=== PATIENT | male | born 1970 | race Caucasian/White ===

== ENCOUNTER 2018-01-01 17:56 | Inpatient (IN) | payer OTHER ==
[2018-01-01] MEDS ORDERED: ASPIRIN 325 MG TAB PO ONE (18:13)
--- NOTE | 2018-01-01 18:15 | CPEKG ---
Test Reason : OPEN Blood Pressure : / mmHG Vent. Rate : 090 BPM Atrial Rate : 091 BPM P-R Int : 155 ms QRS Dur : 095 ms QT Int : 352 ms P-R-T Axes : 065 092 040 degrees QTc Int : 431 ms Sinus rhythm Lateral infarct, acute (LAD) Confirmed by Manoj Toledo ([id number]) on 01/01/2018 6:15:24 PM Referred By: Confirmed By:Manoj Toledo
--- NOTE | 2018-01-01 18:16 | EDPHY ---
H & P Smoking Status: Never smoked Time Seen by Provider: 01/01/18 18:03 HPI/ROS: CHIEF COMPLAINT: Chest pressure HISTORY OF PRESENT ILLNESS: The patient is a 47-year-old male here with chief complaint of chest pressure since 2 o'clock this morning. He reports chest pressure that woke him from his sleep around 2:00 a.m and lasted until around 10 :00 a.m. States the pain self-resolved and then reoccurred around 4 o'clock this afternoon. The chest pain does not radiate. He has had no diaphoresis. He was picking up his daughter from school and driving when the pain reoccurred. He has had no exertional chest pain recently. He has no cardiac history. He has no history of diabetes, hypertension, dyslipidemia, smoking. He has not taken any aspirin today. Denies any drug allergies. He has never had a stress test. States he has felt slightly fatigued for the last 5 days has had a"bad workouts"and has noticed that his heart rate has been elevated is typically slow. Has no history of DVT chest pain. He has had no cough. States he woke this morning and had a temperature of 101 degrees. He's had no runny nose or sore throat. REVIEW OF SYSTEMS: Constitutional: + fever, no chills. Eyes: No discharge. ENT: No sore throat. Cardiovascular: + chest pain, no palpitations. Respiratory: No cough, no shortness of breath. Gastrointestinal: No abdominal pain, no vomiting. Genitourinary: No hematuria. Musculoskeletal: No back pain. Skin: No rashes. Neurological: No headache. (Jean Carlos Layne) Physical Exam: General Appearance: Alert and no distress. No respiratory distress. Non diaphoretic. Eyes: Pupils equal and round no injection. Respiratory: Chest is nontender, lungs are clear to auscultation. No respiratory distress Cardiac: regular rate and rhythm. No murmur or rub. Gastrointestinal: Abdomen is soft and nontender, no masses, bowel sounds normal. Musculoskeletal: Neck is supple and nontender. No JVD Extremities have full range of motion and are nontender. Skin: No rashes or lesions. Neuro: Alert and oriented (Jean Carlos Layne) Constitutional: Initial Vital Signs Temperature (C) 36.7 C 01/01/18 17:57 Heart Rate 104 H 01/01/18 17:57 Respiratory Rate 18 01/01/18 17:57 Blood Pressure 124/89 H 01/01/18 17:57 O2 Sat (%) 98 01/01/18 17:57 O2 Delivery Mode Room Air Allergies/Adverse Reactions: No Known Allergies Allergy (Verified 06/09/15 22:50) Home Medications: Medication Instructions Recorded Herbals/Supplements -Info Only 1 ea PO DAILY 01/01/18 Medical Decision Making - Diagnostics EKG Interpretation: Sinus rhythm with rate of 90. ST depression in V1 and V3. No ST elevation. QTC 431. (Jean Carlos Layne) ED Course/Re-evaluation: Please see Dr. Toledo's the documentation. The 47-year-old male here with the chest pain that will confirm sleep at 2:00 a.m. This morning. Presents to the ER with recurrence of pressure and EKG shows ST depression here full concerning for acute M I. . Initial troponin is elevated at 13.. I discussed case with my supervising physician who called interventional cardiology. He was given 325 aspirin. He remained hemodynamically stable during his stay in the emergency room. (Jean Carlos Layne) Differential Diagnosis: Differential diagnosis considered for chest pain including but not limited to myocardial ischemia, aortic dissection, pericarditis, pulmonary embolus, chest wall pain, pleural inflammation and pulmonary infectious causes. (Manoj Toledo) Other Provider: PHYSICIAN DOCUMENTATION: The patient was evaluated and managed by the Physician Machine Deburrer and myself. I have reviewed the chart and agree with the findings and plan of care as documented. In addition, I examined the patient myself at 1810. History confirmed as nontraumatic chest pressure, but also recent subjective fever. Physical findings as follows: Regular rate rhythm without murmur, not diaphoretic. Discussed with Dr. Guevara interventionalist at 6:15 p.m.; he reviewed EKG, requested at 18:23 call laborer landscape in which was done by [employer]. Discussed with his friend Dr. Rosenbaum electric power superintendent at the patient's request, by phone. 1900: hr 97, 99% sat, 130/78. CP down to 0.5/10. Paola with patient. Critical care time spent by me, Dr. Toledo, exclusively with the care of this patient was 20 minutes, exclusive of PA or SENIOR BUSINESS OBJECTS DEVELOPER time and exclusive of separate procedures. The organ system at risk was is cardiovascular and I ordered aspirin, nitroglycerin, cardiology consultation to stabilize the patient and prevent worsening of the patient's condition. I am the secondary supervising physician. (Manoj Toledo) - Data Points Laboratory Results: Laboratory Results 01/01/18 18:10 01/01/18 18:10 01/01/18 01/01/18 01/01/18 18:16 18:10 18:10 WBC RBC Hgb Hct MCV MCH MCHC RDW Plt Count MPV Neut % (Auto) Lymph % (Auto) [place] % (Auto) Eos % (Auto) Baso % (Auto) Nucleat RBC Rel Count Absolute Neuts (auto) Absolute Lymphs (auto) Absolute Monos (auto) Absolute Eos (auto) Absolute Basos (auto) Absolute Nucleated RBC Immature Gran % Immature Gran # PT 14.2 SEC SEC (12.0-15.0) INR 1.08 (0.83-1.16) APTT 26.3 SEC SEC (23.0-38.0) Sodium Potassium Chloride Carbon Dioxide Anion Gap BUN Creatinine Estimated GFR Glucose Calcium POC Troponin I 13.09 ng/mL H ng/mL (0.00-0.08) Troponin I 12.400 ng/mL H ng/mL (0.000-0.034) 01/01/18 01/01/18 18:10 18:10 WBC 8.59 10^3/uL 10^3/uL (3.80-9.50) RBC 5.10 10^6/uL 10^6/uL (4.40-6.38) Hgb 15.3 g/dL g/dL (13.7-17.5) Hct 44.0 % % (40.0-51.0) MCV 86.3 fL fL (81.5-99.8) MCH 30.0 pg pg (27.9-34.1) MCHC 34.8 g/dL g/dL (32.4-36.7) RDW 12.1 % % (11.5-15.2) Plt Count 270 10^3/uL 10^3/uL (150-400) MPV 10.1 fL fL (8.7-11.7) Neut % (Auto) 77.3 % H % (39.3-74.2) Lymph % (Auto) 11.8 % L % (15.0-45.0) [place] % (Auto) 10.0 % % (4.5-13.0) Eos % (Auto) 0.5 % L % (0.6-7.6) Baso % (Auto) 0.2 % L % (0.3-1.7) Nucleat RBC Rel Count 0.0 % % (0.0-0.2) Absolute Neuts (auto) 6.64 10^3/uL H 10^3/uL (1.70-6.50) Absolute Lymphs (auto) 1.01 10^3/uL 10^3/uL (1.00-3.00) Absolute Monos (auto) 0.86 10^3/uL H 10^3/uL (0.30-0.80) Absolute Eos (auto) 0.04 10^3/uL 10^3/uL (0.03-0.40) Absolute Basos (auto) 0.02 10^3/uL 10^3/uL (0.02-0.10) Absolute Nucleated RBC 0.00 10^3/uL 10^3/uL (0-0.01) Immature Gran % 0.2 % % (0.0-1.1) Immature Gran # 0.02 10^3/uL 10^3/uL (0.00-0.10) PT INR APTT Sodium 141 mEq/L mEq/L (135-145) Potassium 3.5 mEq/L mEq/L (3.3-5.0) Chloride 102 mEq/L mEq/L (97-110) Carbon Dioxide 25 mEq/l mEq/l (22-31) Anion Gap 14 mEq/L mEq/L (8-16) BUN 22 mg/dL mg/dL (7-23) Creatinine 0.8 mg/dL mg/dL (0.7-1.3) Estimated GFR > 60 Glucose 157 mg/dL H mg/dL (70-100) Calcium 10.2 mg/dL mg/dL (8.5-10.4) POC Troponin I Troponin I Medications Given: Ibuprofen (Motrin) 600 mg PO TID [place] Stop: 06/30/18 21:59 Last Admin: 01/01/18 20:51 Dose: 600 mg Nitroglycerin (Nitrostat) 0.4 mg SL Q5M PRN PRN Reason: Chest Pain Last Admin: 01/01/18 18:34 Dose: 0.4 mg Discontinued Medications Aspirin (Aspirin) 325 mg PO EDNOW ONE Stop: 01/01/18 18:14 Last Admin: 01/01/18 18:26 Dose: 325 mg Nitroglycerin/Dextrose (Nitroglycerin 200 Mcg/Ml (Premix)) 250 mls @ 0 mls/hr IV EDNOW ONE; Titrate PRN Reason: Protocol Stop: 01/01/18 18:25 Last Admin: 01/01/18 18:53 Dose: 250 mls Sodium Chloride (Ns) 1,000 mls @ 0 mls/hr IV EDNOW ONE; Wide Open PRN Reason: Protocol Stop: 01/01/18 18:25 Last Admin: 01/01/18 18:31 Dose: 1,000 mls Point of Care Test Results: Chemistry 01/01/18 18:16 POC Troponin I 13.09 ng/mL H ng/mL (0.00-0.08) Departure - Departure Disposition: To OP Cath/Surgery Clinical Impression: Acute coronary syndrome Condition: Serious
[2018-01-01 18:21] LABS: PLATELET COUNT 270 10^3/uL (150-400)
[2018-01-01] MEDS ORDERED: NITROGLYCERIN/DEXTROSE 250 ML IV ONE (18:24)
[2018-01-01] MEDS ORDERED: NS 1,000 ML IV ONE (18:24)
[2018-01-01] MEDS: NITROGLYCERIN 0.4 MG BTL SL PRN ×2 (18:28→18:34)
[2018-01-01 18:32] LABS: INR 1.08 (0.83-1.16); PROTIME(PATIENT) 14.2 SEC (12.0-15.0)
[2018-01-01] MEDS ORDERED: IOPAMIDOL (ISOVUE-370) 150 ML BTL IV ONE (18:51)
[2018-01-01] MEDS ORDERED: MIDAZOLAM 2 MG/2 ML VIAL ONE ×2 (18:51→19:27)
[2018-01-01] MEDS ORDERED: LIDOCAINE 1% 300 MG/30 ML SDV ONE (18:51)
[2018-01-01] MEDS ORDERED: fentaNYL 100 MCG/2 ML INJ ONE ×2 (18:51→19:27)
[2018-01-01] MEDS ORDERED: ONDANSETRON 4 MG/2 ML VIAL IVP PRN (20:07)
[2018-01-01] MEDS ORDERED: ATROPINE SULFATE 1 MG/10 ML SYR IVP PRN (20:07)
[2018-01-01] MEDS ORDERED: HYDROCODONE/APAP 5/325 TAB PO PRN (20:07)
--- NOTE | 2018-01-01 20:49 | ECHO ---
[email or web address] [address] [address] Main: [phone] Fax: Transthoracic Echocardiogram Name: HIGINIO MCCLENDON MR#: [id number] Study Date: 01/01/2018 Study Time: 08:04 PM Date of : 1970 Age: 47 year(s) Height: 172.7 cm (68 in.) Weight: 79.38 kg (175 lb.) BSA: 1.93 m2 Gender: Male Examination: Limited Echo Indication: Eval for LV function and pericardial effusion Image Quality: Adequate Contrast: Requested by: Esau Pacheco BP: / Heart Rate: Rhythm: Indication: Eval for LV function and pericardial effusion Procedure Staff Sharepoint Specialist: Melva Erazo [facility] Reading Physician: Esau Pacheco MD Requesting Provider: Conclusions: Normal size left ventricle. Normal global systolic LV function. The ejection fraction is visually estimated to be 60 %. No pericardial effusion. Measurements: Chambers Valvular Assessment AV/MV Valvular Assessment TV/PV Normal Normal Normal Name Value Range Name Value Range Name Value Range Visual EF: 60 % AV Vmax: 1.31 m/s (1 m/s-1.7 m/s) AV maxP mmHg ( - ) AV meanP mmHg ( - ) Continued Measurements: Findings: Left Ventricle: Normal size left ventricle. Normal global systolic LV function. The ejection fraction is visually estimated to be 60 %. No regional wall motion abnormality. Right Ventricle: Normal size right ventricle. Normal RV function. Left Atrium: The left atrium is normal in size. Right Atrium: The right atrium is normal in size. Mitral Valve: The mitral valve is normal in appearance and function. Mild mitral valve regurgitation is present. No mitral stenosis is present. Patient: HIGINIO MCCLENDON Study Date: 01/01/2018 Page 1 of 2 08:04 PM Aortic Valve: The aortic valve is tri-leaflet. There is no significant aortic valve regurgitation. No aortic valve stenosis is present. Tricuspid Valve: The tricuspid valve is normal in appearance and function. Trivial tricuspid valve regurgitation. Pulmonic Valve: The pulmonic valve is normal in appearance and function. Pericardium: No pericardial effusion. (No Signature Object) Patient: HIGINIO MCCLENDON Study Date: 01/01/2018 Page 2 of 2 08:04 PM [id number]
[2018-01-01] MEDS: IBUPROFEN 600 MG TAB PO SCH (20:51)
[2018-01-02] MEDS ORDERED: PROTOCOL MAGNESIUM 1 DOSE IV PRN (01:58)
[2018-01-02] MEDS ORDERED: PROTOCOL POTASSIUM 1 DOSE MISC PRN (01:58)
[2018-01-02] MEDS ORDERED: POTASSIUM CL 20 MEQ TAB PO ONE (02:15)
[2018-01-02] MEDS ORDERED: MAGNESIUM SULF 1 GM/DEXTROSE 100 ML IV ONE (02:30)
--- NOTE | 2018-01-02 03:37 | GCON ---
DATE OF CONSULTATION: 01/01/2018 We have been asked by Dr. Toledo to evaluate the patient with symptoms of chest pain. HISTORY OF PRESENT ILLNESS: The patient is a 47-year-old gentleman with limited cardiac risk factors , who presents with a chief complaint of chest pain. The patient was in his usual state of health un til approximately 2 o'clock this morning when he woke up experiencing chest pain. The chest pain was described as an intense pressure in the center of his chest without radiation. The chest pain was a ssociated with symptoms of nausea and vomiting, but not diaphoresis. The chest pain lasted until juwan roximately 10 or 11 o'clock this morning when it gradually subsided. The patient did well until appr oximately 4 o'clock this afternoon when he had a recurrence of his chest pain. He took some Gas-X wi thout resolution of his symptoms. Therefore, he decided to go to the emergency department for furthe r evaluation. In the emergency department, he had an EKG performed demonstrating sinus rhythm. The patient was noted to have subtle ST-segment elevation in leads [address]-segment depression i n lead V1. His troponin was elevated at 13. We were consulted to help in the further management of this patient. The patient was treated with aspirin and nitroglycerin. His symptoms had improved sig nificantly by my arrival at bedside however, patient was continuing to have low level chest pain. Th e patient denies a previous history of coronary artery disease. There is no history of hypertension, hyperlipidemia, diabetes mellitus, or smoking. The patient does report a family history of coronary artery disease at an early age onset in his grandfather. Other symptoms of note: Approximately 1 d ay prior to admission, patient noted an increase in his resting heart rate by approximately 20 beats per minute. In addition, patient has been feeling symptoms of generalized fatigue and the evening pr ior to admission, patient did note a fever of 101 degrees. PAST MEDICAL HISTORY: None. MEDICATIONS: None. ALLERGIES: No known drug allergies. SOCIAL HISTORY: Patient is . He lives with his . 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 He does not smoke. He denies problems with alcohol. FAMILY HISTORY: Notable for coronary artery disease. REVIEW OF SYSTEMS: 10-point review of systems is negative, except as noted in HPI. PHYSICAL EXAMINATION: GENERAL: The patient is resting in bed. He appears to be in mild distress. VITAL SIGNS: Temperature is afebrile. Pulse is 85, blood pressure is 128/75, respiratory rate is 18 , SaO2 is 100% on 2 L nasal cannula. HEENT: Normocephalic atraumatic. Extraocular muscles intact. NECK: No JVD. No bruits. LUNGS: Clear to auscultation bilaterally. CARDIOVASCULAR: Regular rat e and rhythm. S1, S2. No murmurs, rubs, or gallops appreciated. Abdomen. ABDOMEN: Soft, nontende r. Normoactive bowel sounds. No hepatosplenomegaly noted. EXTREMITIES: No clubbing, cyanosis, or edema. SKIN: No evidence of rash. NEURO: Patient is awake, alert, and oriented x3. LABORATORY: White blood cell count is 8.59, hemoglobin 15.3, hematocrit is 44.0, platelet count is 2 70. Sodium 141, potassium 3.5, chloride 102, CO2 25, BUN 22, creatinine 0.8. Troponin is 13.09. Gl ucose is elevated at 157. INR is 1.08. EKG demonstrates sinus rhythm. Vertical axis normal interva ls. Subtle ST-segment elevation in leads 1 and aVL with small R-waves, ST-segment depression in lead V1. ASSESSMENT AND PLAN: The patient is a 47-year-old gentleman with limited cardiac risk factors, who p resents with a chest pain syndrome concerning for an anginal equivalent. His troponin is elevated at 13. His EKG is suggestive of possible inferolateral myocardial infarction. Reviewed risks and bene fits of cardiac catheterization to further evaluate his symptoms. Will arrange to have this performe d emergently. Other potential etiologies would be pericarditis given his fever and recent flu-like i llness. However, his EKG is more suggestive of ischemia than it would be pericarditis. /[id number]/MODL
[2018-01-02] MEDS: IBUPROFEN 600 MG TAB PO SCH ×3 (06:05→21:40)
[2018-01-02] MEDS: OXYCODONE/APAP 5/325 TAB PO PRN ×2 (06:29→08:14)
--- NOTE | 2018-01-02 07:08 | CPIP ---
DATE OF PROCEDURE: 01/01/2018 PROCEDURE: 1. Coronary angiography. 2. Left ventriculography. INDICATION: Acute coronary syndrome with elevated troponin. ACCESS: Patient was prepped and draped in sterile fashion. 1% lidocaine was used to anesthetize the right inguinal region. A 6-Bolivian introducer sheath was placed selectively into the right common fe moral artery via modified Seldinger technique. CORONARY ANGIOGRAPHY: A 6-Bolivian JL4 was advanced to the left main coronary artery and images obtain ed. The left main coronary artery bifurcated into an LAD and circumflex coronary arteries. The left main coronary artery appeared normal. The left anterior descending coronary artery gave rise to 4 d iagonal branches. The left anterior descending coronary artery and its complement of diagonal branch es appeared normal. The circumflex coronary artery is a large vessel, but was nondominant. Circumfl ex coronary artery gave rise to 1 prominent OM branch. The circumflex coronary artery appeared ramirez l. Its OM branch also appeared normal. A 6-Bolivian JR4 was advanced to the right coronary artery. I t did not engage the right coronary artery well. The 6-Bolivian JR4 was exchanged for a 6-Bolivian no-to rque right catheter. The 6-Bolivian no-torque right catheter engaged the right coronary artery well an d images were obtained. The right coronary artery is dominant. The right coronary artery appeared n ormal. LEFT VENTRICULOGRAPHY: A 6-Bolivian pigtail catheter was advanced in the left ventricle and images obt ained. Left ventricle is normal size, had normal systolic function. The estimated ejection fraction is 55%. There appeared to be subtle anterolateral hypokinesis. COMPLICATIONS: None. CONCLUSIONS: 1. Normal coronary arteries. 2. Normal left ventricular size and systolic function. /[id number]/MODL
--- NOTE | 2018-01-02 08:16 | PDMN ---
Medical Necessity Medical necessity: MCG M230 HI- [address] elevation in leads 1 and a VL with sm R waves, ST segment depression in lead V1 - trop elevated 13, emergent cardiac cath,
[2018-01-02] MEDS: NITROGLYCERIN 0.4 MG BTL SL PRN (09:59)
[2018-01-02] MEDS ORDERED: IOPAMIDOL (ISOVUE 370) 100 ML BTL IV ONE (10:13)
[2018-01-02] MEDS: PANTOPRAZOLE SODIUM 40 MG TAB PO SCH (11:02)
[2018-01-02] MEDS: CARVEDILOL 3.125 MG TAB PO SCH ×2 (11:14→19:32)
--- NOTE | 2018-01-02 11:58 | GCON ---
PULMONARY CRITICAL CARE CONSULTATION DATE OF CONSULTATION: 01/02/2018 REASON FOR CONSULTATION: Chest pain, myocarditis. HISTORY: Patient is a healthy 47-year-old gentleman who has noticed some shortness of breath and fat igue over the last week or so. Heart rate was high in a recent workout. He has had 2 days of off an d on atypical chest pain. He presented to the emergency department where there was ST-segment abnorm alities and an elevated troponin at 13. He was given aspirin and nitroglycerin. Cardiology consulte d and took him to the photofinishing laboratory worker. There were was no evidence of coronary artery disease. Left ventric ular ejection fraction was 55%. Cardiac echo was normal. Repeat troponin showed continued elevation at 16. After the procedure, the patient was admitted to the intensive care unit for observation and monitori ng. He has done well. Vital signs have been stable. He has had some intermittent chest pain, which has waxed and waned. No pericardial rub has been heard and no pericardial effusion is present. The patient has no other significant problems. He last traveled to [place] by plane about 3 weeks ago . He has had no significant lower extremity symptoms. CT angiogram of the chest done this morning i s negative for thromboembolic disease. PAST MEDICAL HISTORY: Negative. He has no medical problems. MEDICATIONS: Takes no medications. DRUG ALLERGIES: None known. 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 He and his have 2 b oys. There is no history of tobacco use. Significant alcohol is negative. FAMILY HISTORY: Positive for coronary artery disease. REVIEW OF SYSTEMS: 10-point review of systems is negative, except as mentioned above. He did have a low-grade fever 101 the night prior to admission. PHYSICAL EXAMINATION: GENERAL: Reveals a pleasant gentleman who is lying comfortably in bed. He is in no distress. VITAL SIGNS: Blood pressure is 138/72, heart rate 85 with sinus rhythm on the es tor, respiratory rate is 14. He is afebrile. NECK: Unremarkable for lymphadenopathy or thyromegaly . There is no jugular venous distention. CHEST: Clear bilaterally. Excursions are excellent. The re are no abnormal sounds. HEART: Regular in rate and rhythm. There are no murmurs, no obvious gal lops. P2 is normal. ABDOMEN: Soft, nontender. Bowel sounds are present. EXTREMITIES: Unremarkab le for edema, cords, or tenderness. NEUROLOGIC: Examination is within normal limits. DATABASE: Catheterization, echo, and CT angiogram are as noted above. White blood cell count is 8600, hematocrit 44, platelets 270,000. PT and PTT were normal on admissio n. Basic metabolic panel was normal with the exception of a mildly elevated glucose of 157. Initial troponin was 12.4. Current troponin this morning is 16.3. Cholesterol is 94. BNP is mildly elevat ed at 973. ASSESSMENT: 1. Chest pain. This is atypical, likely was related to myocarditis. The patient is being followed by Dr. Guevara. Anti-inflammatory treatment and pain control has been initiated. He has been placed on carvedilol. There is no evidence of pulmonary embolic disease, pleurisy, or other explanations fo r his pain. The etiology for his myocarditis would most likely be viral. 2. Prophylaxis: He will be placed on pantoprazole. He is going to be ambulatory and is at low risk for deep venous thrombosis. Sequential compression devices will be used during bedrest. PLAN/RECOMMENDATIONS: Patient will be kept in the intensive care unit. Telemetry monitoring will be maintained. Appropriate pain control will be given. Ibuprofen will be continued. Further plans and recommendations will be made based on his progress over the next 12-24 hours. /[id number]/MODL
--- NOTE | 2018-01-02 12:48 | SOAPPROG ---
ESTEFANÍA Progress Note Assessment/Plan: 1. Myocarditis - Pt presented with symptoms of chest pain and an elevated troponin. Cardiac catheterization on 01/01/18 demonstrated no significant obstructive disease, preserved LV function, and an elevated LVEDP of [address] mmHg. [address] with subtle [address] elevation and MI depression. Pt has continued to have intermittent episodes of chest pain. Troponin has increased from 12 to 16. ESR and CRP are wnl. Telemetry with short runs of VT from 2 different locations. No CHF. --> Repeat troponin in am --> Repeat echocardiogram in am --> Follow on telemetry --> motrin 600 mg bid for myoparicarditis --> coreg 3.125 mg bid 2. Elevated glucose - + family history of DM. --> Await Hgb A1c Subjective: + chest pain overnight and again this am No orthopnea or PND No access site complications Objective: Vital Signs Temp Pulse Resp BP Pulse Ox 36.8 C 72 14 122/76 H 96 01/02/18 12:00 01/02/18 12:00 01/02/18 12:00 01/02/18 12:00 01/02/18 12:00 Laboratory Results 01/02/18 11:28 01/02/18 05:30 01/01/18 01/02/18 01/03/18 05:59 05:59 05:59 Intake Total 1600 Output Total 1050 Balance 550 PT 14.2 SEC (12.0-15.0) 01/01/18 18:10 INR 1.08 (0.83-1.16) 01/01/18 18:10 Physical Exam - Physical Exam General Appearance: alert, no apparent distress Respiratory: lungs clear Cardiac/Chest: regular rate, rhythm, No friction rub Abdomen: non-tender, soft Extremities: No pedal edema Neuro/Psych: alert, oriented x 3 ICD10 Worksheet Patient Problems: Problems Problem Status Onset Acute coronary syndrome Acute TIA (transient ischemic attack) Acute
--- NOTE | 2018-01-02 12:53 | ASMTCMCOM ---
CM Note CM Note Notes: Reviewed chart. Pt presented to the Emergency Department with atypical chest pressure. No significant history noted. Pt is , lives with his spouse independently. 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 Pt admitted for further evaluation and treatment of possible ACS; he is s/p a clean heart cath. Discharge needs remain unclear. Pt is being treated for myocarditis of unknown etiology. Anticipate pt will likely return home independently when medically stable. CM will continue to follow for any potential needs. Discharge Plan: To be determined, likely independent Date Signed: 01/02/2018 12:52 PM Electronically Signed By:Jacquelyn Mcguire RN
--- NOTE | 2018-01-02 18:57 | CPEKG ---
Test Reason : OPEN Blood Pressure : / mmHG Vent. Rate : 078 BPM Atrial Rate : 078 BPM P-R Int : 152 ms QRS Dur : 095 ms QT Int : 360 ms P-R-T Axes : 061 089 046 degrees QTc Int : 411 ms Sinus rhythm Lateral infarct, acute STEMI Minimal ST elevation, inferior leads Compared with 01/01/2018 similar findings Confirmed by Renae Fleming ([id number]) on 01/02/2018 6:57:27 PM Referred By: Confirmed By:Renae Fleming
[2018-01-02] MEDS ORDERED: POTASSIUM CL 10 MEQ TAB PO ONE (19:17)
[2018-01-03 06:01] LABS: INR 1.11 (0.83-1.16); PROTIME(PATIENT) 14.5 SEC (12.0-15.0)
[2018-01-03] MEDS ORDERED: MAGNESIUM SULF 1 GM/DEXTROSE 100 ML IV ONE (07:35)
[2018-01-03] MEDS: CARVEDILOL 3.125 MG TAB PO SCH ×2 (09:34→16:42)
[2018-01-03] MEDS: IBUPROFEN 600 MG TAB PO SCH ×3 (09:34→21:05)
[2018-01-03] MEDS: PANTOPRAZOLE SODIUM 40 MG TAB PO SCH (09:35)
--- NOTE | 2018-01-03 10:08 | PDCARPN ---
Cardiology Progress Note Chief Complaint: Chest pains Assessment/Plan: Assessment: Patient is a 47 y/o male with unremarkable past medical history (no HTN, HLP, CAD, or DM), who presented last week (Wednesday) with complaints of chest pains. ECG with ST elevation and elevation to the troponin was noted. The patient was taken to the cardiac field laboratory operator without appreciable CAD noted. LVEF by ventriculography as well as echocardiography was normal (55% by angiography and 60% by echo). Troponin continues to elevate (mild elevation was noted with this morning's assessment). Patient without cardiovascular complaints - this is the longest the patient has gone without symptoms. Telemetry with very infrequent PVCs (there was one noted this morning while on rounds). 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 Discussion this morning about both CMR and EMB as diagnostic testing options. Plan: (1) Would continue therapy on Coreg as at present (2) Add colchicine (0.6 mg twice per day) (3) Repeat troponin at noon (first testing was 5 am) (4) Will order CMR this morning (5) Yesterday's note made mention of repeat echocardiography as well which is reasonable, non nuclear, and non invasive (6) Many signs and symptoms would continue the patient on the path to a EMB, and the patient has been told this - EMB is more sensitive and specific for the diagnosis (specifically) Subjective: No cardiovascular complaints Objective: Vital Signs (8 Hrs) Temp Pulse Resp BP Pulse Ox 01/03/18 09:34 84 117/74 01/03/18 08:00 37 C 70 21 H 117/74 96 01/03/18 06:00 36.6 C 65 14 98/59 L 96 01/03/18 04:00 68 16 100/55 L Intake/Output (24 Hrs) 01/02/18 01/03/18 01/04/18 05:59 05:59 05:59 Intake Total 1600 650 Output Total 1050 0 Balance 550 650 Intake: Oral (ml) 500 650 IV Intake (ml) 900 IV Infused (ml) 200 Output: Urine (ml) 1050 Toilet 800 Urinal 250 Emesis (ml) 0 Other: Weight 83.2 kg Intake Quantity Yes Sufficient Number of Voids 0 Toilet 2 3 Urinal 1 Number of Stools Toilet 0 Result Diagrams: 01/03/18 05:42 01/03/18 05:42 Cardiac Labs: Cardiac Lab Results (72 Hrs) 01/03/18 01/02/18 05:42 05:30 Troponin I 18.200 H 16.300 H EKG: Sinus rhythm with ST elevation (diffusely) Telemetry: Normal sinus rhythm Echocardiogram: Normal LVEF without blanca wall motion abnormalities noted - Physical Exam Constitutional: WDWN, healthy appearing, no apparent distress Eyes: PERRL, EOMI Ears, Nose, Mouth, Throat: moist mucous membranes Cardiovascular: regular rate and rhythm, no murmurs, no rubs, no gallops, pulses symmetric bilat, No jugular vein distention Peripheral Pulses: 2+: dorsalis-pedis (R), dorsalis-pedis (L) Respiratory: clear to auscultate bilat, no crackles, no wheezes Gastrointestinal: normoactive bowel sounds Skin: no rashes, no edema Musculoskeletal: no muscular tenderness Neurologic: AAOx3, CN II-XII grossly intact Psychiatric: cooperative, interactive, following commands ICD10 Worksheet Patient Problems: Problems Problem Status Onset Acute coronary syndrome Acute TIA (transient ischemic attack) Acute
[2018-01-03] MEDS: COLCHICINE 0.6 MG CAP/TAB PO SCH ×2 (11:32→21:05)
--- NOTE | 2018-01-03 12:47 | ECHO ---
[email or web address] [place] [id number] Main: [phone] Fax: Transthoracic Echocardiogram Name: HIGINIO MCCLENDON MR#: [id number] Study Date: 01/03/2018 Study Time: 10:40 AM Date of : 1970 Age: 47 year(s) Height: 175.3 cm (69 in.) Weight: 83.01 kg (183 lb.) BSA: 1.99 m2 Gender: Male Examination: Limited Echo Indication: reassessment of wall motion and systolic function Image Quality: Adequate Contrast: Requested by: Esau Torres BP: 115 mmHg/65 mmHg Heart Rate: Rhythm: Indication: reassessment of wall motion and systolic function Procedure Staff Datastage Architect: Elda Owen [facility] Reading Physician: Parveen Paredes MD Requesting Provider: Conclusions: Normal size left ventricle. No LV hypertrophy. Low normal left ventricular systolic function. EF is 52 %. No regional wall motion abnormality. Normal RV function. Echo free space noted around RV free wall most likely fat pad. Measurements: Chambers Valvular Assessment AV/MV Valvular Assessment TV/PV Normal Normal Normal Name Value Range Name Value Range Name Value Range IVSd (2D): 0.7 cm (0.6 cm-1.1 cm) LVDd (2D): 4.8 cm (4.2 cm-5.9 cm) LVDs (2D): 3.5 cm (2.1 cm-4 cm) LVPWd (2D): 0.9 cm (0.6 cm-1 cm) LVEF (BP): 52 % (>=55 %) Continued Measurements: Findings: Left Ventricle: Normal size left ventricle. No LV hypertrophy. Low normal left ventricular systolic function. EF is 52 %. No regional wall motion abnormality. Right Ventricle: Patient: HIGINIO MCCLENDON Study Date: 01/03/2018 Page 1 of 2 10:40 AM Normal RV function. Pericardium: Echo free space noted around RV free wall most likely fat pad. (No Signature Object) Patient: HIGINIO MCCLENDON Study Date: 01/03/2018 Page 2 of 2 10:40 AM [id number]
--- NOTE | 2018-01-03 16:58 | PDINTPN ---
Bud[facility] Progress Note Assessment/Plan: Assessment: Probable Myocarditis: Symptoms resolved, resting HR down last troponin down, and EF mildly reduced but stable on Echo this AM. Plan: Cardiac MRI. Follow troponins. Depending on MRI and troponins, will either continue to follow or consider endomyocardial biopsy. 01/03/18 16:56 Subjective: Feels well, no CP, palpitations, dyspnea. Objective: Vital Signs Temp Pulse Resp BP Pulse Ox 37 C 81 12 120/73 97 01/03/18 16:00 01/03/18 16:42 01/03/18 16:00 01/03/18 16:42 01/03/18 16:00 Laboratory Results 01/03/18 05:42 01/03/18 05:42 01/02/18 01/03/18 01/04/18 05:59 05:59 05:59 Intake Total 1600 650 600 Output Total 1050 0 Balance 550 650 600 PT 14.5 SEC (12.0-15.0) 01/03/18 05:42 INR 1.11 (0.83-1.16) 01/03/18 05:42 Echo: EF 52%. Laboratory Tests 01/01/18 01/02/18 01/03/18 18:10 05:30 05:42 Troponin I 12.400 H 16.300 H 18.200 H 01/03/18 11:25 Troponin I 9.680 H Physical Exam - Physical Exam General Appearance: alert, no apparent distress EENT: normal ENT inspection Neck: normal inspection Respiratory: lungs clear, normal breath sounds, No respiratory distress Cardiac/Chest: regular rate, rhythm, No edema, No gallop Abdomen: normal bowel sounds, non-tender Skin: normal color, warm/dry Extremities: normal inspection Neuro/Psych: alert, normal mood/affect, oriented x 3 ICD10 Worksheet Patient Problems: Problems Problem Status Onset Acute coronary syndrome Acute TIA (transient ischemic attack) Acute
[2018-01-03] MEDS ORDERED: GADOBUTROL 10 ML VIAL IVP ONE (17:22)
[2018-01-03] MEDS ORDERED: POTASSIUM CL 10 MEQ TAB PO ONE (18:10)
[2018-01-04] MEDS: IBUPROFEN 600 MG TAB PO SCH (09:45)
[2018-01-04] MEDS: COLCHICINE 0.6 MG CAP/TAB PO SCH (09:45)
[2018-01-04] MEDS: PANTOPRAZOLE SODIUM 40 MG TAB PO SCH (09:46)
[2018-01-04] MEDS: CARVEDILOL 3.125 MG TAB PO SCH (09:46)
--- NOTE | 2018-01-04 09:58 | PDINTPN ---
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 Unable to complete MRI due to claustrophobia. Plan: Follow troponins. ? further testing per cardiology. Can be tele status. 01/04/18 09:56 Subjective: Feels well, no pain, dyspnea, palpatations. Energy is good. Objective: Vital Signs Temp Pulse Resp BP Pulse Ox 36.5 C 68 20 109/60 97 01/04/18 04:00 01/04/18 06:00 01/04/18 06:00 01/04/18 06:00 01/04/18 06:00 Laboratory Results 01/03/18 05:42 01/04/18 06:34 01/03/18 01/04/18 01/05/18 05:59 05:59 05:59 Intake Total 650 800 Output Total 0 Balance 650 800 PT 14.5 SEC (12.0-15.0) 01/03/18 05:42 INR 1.11 (0.83-1.16) 01/03/18 05:42 Laboratory Tests 01/04/18 06:34 Troponin I 8.390 H NT-Pro-B Natriuret Pep 475 H Physical Exam - Physical Exam General Appearance: alert, no apparent distress EENT: normal ENT inspection Neck: normal inspection Respiratory: lungs clear, normal breath sounds Cardiac/Chest: regular rate, rhythm, No edema Abdomen: normal bowel sounds, non-tender, soft Skin: normal color, warm/dry Extremities: normal inspection Neuro/Psych: alert, normal mood/affect, oriented x 3 ICD10 Worksheet Patient Problems: Problems Problem Status Onset Acute coronary syndrome Acute TIA (transient ischemic attack) Acute
[2018-01-04 11:46] VITALS: BP 143/89
[2018-01-04] MEDS ORDERED: IBUPROFEN 200 MG TAB PO ONE (13:38)
--- NOTE | 2018-01-04 18:55 | GDS ---
INDICATION FOR ADMISSION: Chest pain. DISCHARGE DIAGNOSIS: Myocarditis. HOSPITAL COURSE: The patient is a pleasant 47-year-old healthy, physically fit gentleman with no sig nificant past medical history, who presented to [facility] Emergency Department on evening of January 01, 2018, at approximately 1800. He presented with complaints of substernal ches t pain and pressure. Initial ECG demonstrated ST-segment elevation in leads I and aVL with ST depres fortunato in lead V1. Troponin on admission of 12.4. Cardiology was consulted and he was brought directl y to the cardiac catheterization lab, where he underwent diagnostic left heart catheterization. Card iac catheterization demonstrated normal coronary arteries. Echocardiogram performed post-procedure d emonstrated normal left ventricular function with no evidence of pericardial effusion. His troponin continued to elevate throughout the initial course of his hospitalization to a peak troponin of 18.2. He did have brief runs of nonsustained ventricular tachycardia that were asymptomatic. In the setting of rising troponin, nonsustained ventricular tachycardia, a repeat echocardiogram was performed demonstrating continued normal left ventricular function with LVEF of 52%. There was no ev idence of pericardial effusion. Attempt to perform cardiac MRI was aborted secondary to claustrophob ia. He was started on low-dose Coreg. Over the last 48 hours, he has had no further ventricular ect opy. His troponin has continued to trend down and is currently 8.39 at the time of his discharge. At the time of his discharge, he was feeling well. He has no cardiac complaints. He denies chest pa in, chest pressure, or shortness of breath. PHYSICAL EXAMINATION: GENERAL: He is awake, alert, oriented, appropriate. No apparent distress. N YANETH: There is no evidence of JVP or carotid bruits. LUNGS: Clear to auscultation bilaterally. CAR DIAC: S1, S2. Regular rate and rhythm. No murmurs, rubs, or gallops. His PMI is not displaced. A BDOMEN: Soft, nontender, nondistended. Right groin site is stable without hematoma or ecchymosis. Distal pulses are intact. There is no evidence of lower extremity edema. VITAL SIGNS: At time of d ischarge, blood pressure 143/89, heart rate 69 and sinus rhythm, temperature 36.2. LAB WORK: At time of discharge: N-terminal proBNP 475. Hemoglobin of 13.5, hematocrit of 36.8, whi te blood cell count 8.1, platelets 195. Magnesium 1.8, potassium 4.0, creatinine 0.7. Troponin curr ently 8.39. MEDICATIONS: Cardiac medications at time of discharge: 1. Colchicine 0.6 mg p.o. b.i.d. 2. Metoprolol succinate 50 mg once daily. 3. Ibuprofen 400 mg p.o. t.i.d. x7 days. PROCEDURES DURING HOSPITALIZATION: 1. Initial ECG demonstrated sinus rhythm with ST elevation in I and aVL with ST depression in V1. F ollowup ECG was unchanged. 2. Initial echocardiogram on January 01, 2018, demonstrates normal left ventricular function, with no evidence of pericardial effusion. Repeat echocardiogram on January 03, 2018, demonstrates normal lef t ventricular function with LVEF of 52%, with no evidence of pericardial effusion. PLAN: At time of discharge: 1. Patient will be discharged home. 2. Patient will be discharged on colchicine, metoprolol succinate, and ibuprofen. 3. Patient is scheduled to follow up in our office with Salome Herbert, certified nurse abi pantoja, on Friday, January 12, 2018 at 10:45 a.m. Patient has been given post left heart catheterization instructions. Patient has been given our contact number and my business card and asked to call with questions or co anna. /[id number]/[email or web address]
[2018-01-05] MEDS ORDERED: METOPROLOL SUCCINATE XR 50 MG TAB PO SCH (09:00)
== END 2018-01-04 14:21 | disposition home or self-care (01) | DRG 287 ==
LOC: F2N 20:15
PROVIDERS: ADMIT Internal Medicine Cardiovascular Disease; ATTEND Internal Medicine Cardiovascular Disease
PROC: B2151ZZ Fluoroscopy of Left Heart using Low Osmolar Contrast (ICD-10-PCS; principal; 2018-01-01)
PROC: B2111ZZ Fluoroscopy of Multiple Coronary Arteries using Low Osmolar Contrast (ICD-10-PCS; principal; 2018-01-01)
DX: I51.4 Myocarditis, unspecified (principal); E86.9 Volume depletion, unspecified
CPT/HCPCS: 84484-PO; 96374; A9585; C1760; J1644; J2250; J2270; J3010; J3475; Q9967